=== PATIENT | female | born 1970 | race Caucasian/White ===

== ENCOUNTER 2018-10-14 06:31 | Emergency (ER) | payer BC, OTHER ==
[~2018-10-14] VITALS: Ht 152.4 cm; Wt 72.0 kg
[2018-10-14 06:35] VITALS: BP 118/66; PULSE 84; RESP 16; Ht 152.4 cm; Wt 72.0 kg
[2018-10-14] MEDS ORDERED: PRED20TA PO (06:45)
[2018-10-14] MEDS ORDERED: TRIA15OI9 TOP (06:45)
[2018-10-14] MEDS ORDERED: BEN25 PO (06:45)
--- NOTE | 2018-10-14 06:47 | ERD ---
ER Documentation Chief Complaint Chief Complaint pt is bib self with c/o rash x 4 days unk cause HPI 48-year-old female otherwise healthy is here presents complaining of rash she is had for about 5 days. It is very itchy and she states it is worse on her bilateral upper extremities around the folds of her armpits as well as lower extremities. No swelling of her lip or tongue. Speaking in full sentences. No respiratory distress. Has not tried any medications for her symptoms. Denies any new foods soaps or irritants that she can think of. ROS All systems reviewed and are negative except as per history of present illness. Medications Home Meds Active Scripts Triamcinolone Acetonide (Triamcinolone Acetonide) 0.5% - 15 Gm Oint..gm., 1 APPLIC TOP BID, #30 GM Prov:DAREN WONG PA-C 10/14/18 Prednisone* (Prednisone*) 20 Mg Tab, 60 MG PO DAILY for 4 Days, TAB Prov:DAREN WONG PA-C 10/14/18 Diphenhydramine Hcl* (Benadryl*) 25 Mg Cap, 25 MG PO Q6, #30 CAP Prov:DAREN WONG PA-C 10/14/18 Allergies Allergies: Coded Allergies: acetaminophen (Verified Allergy, Unknown, 10/14/18) codeine (Verified Allergy, Unknown, 10/14/18) FmHx Family History: No diabetes Physical Exam Vitals Vital Signs Date Temp Pulse Resp B/P (MAP) Pulse Ox O2 O2 Flow FiO2 Time Delivery Rate 10/14/18 98.3 84 16 118/66 98 06:35 (83) Physical Exam Const: No acute distress Head: Atraumatic Eyes: Normal Conjunctiva ENT: Normal External Ears, Nose and Mouth. Neck: Full range of motion. No meningismus. Resp: Clear to auscultation bilaterally Cardio: Regular rate and rhythm, no murmurs Abd: Soft, non tender, non distended. Normal bowel sounds Skin: Macular papular hive-like rash on bilateral upper extremities and anterior chest wall Procedures/MDM Patient presents with rash consistent with allergic reaction. She was given pre scription for short course of prednisone, triamcinolone cream, and Benadryl. Patient counseled regarding my diagnostic impression and care plan. Prior to discharge all questions answered. Pt agrees with treatment plan and understands strict return precautions. Pt is instructed to follow up with primary care provider within 24-48 hours. Precautionary instructions provided including instructions to return to the ER if not improving or for any worsening or changing symptoms or concerns. Departure Diagnosis: Primary Impression: Rash Condition: Stable Patient Instructions: Self-Care for Skin Rashes Additional Instructions: Call your primary care doctor TOMORROW for an appointment during the next 1-2 days.See the doctor sooner or return here if your condition worsens before your appointment time. DAREN WONG PA-C Oct 14, 2018 06:47
== END 2018-10-14 07:06 | disposition home or self-care (01) ==
LOC: FTE 06:31
DX: R21 Rash and other nonspecific skin eruption (principal)
CPT/HCPCS: 99282